=== PATIENT | male | born 1985 | race Caucasian/White ===

== ENCOUNTER 2021-10-19 10:52 | Emergency (ER) | payer MEDICAID, OTHER ==
[~2021-10-19] VITALS: Ht 177.8 cm; Wt 74.8 kg
[2021-10-19] MEDS ORDERED: BENZ-13 PO (12:39)
[2021-10-19] MEDS ORDERED: CHLO25CA22 PO (12:39)
--- NOTE | 2021-10-19 12:48 | NUR ---
PT WAS SEEN AND EVALUATED BY DR KIDD. PCR SPECIMEN OBTAINED AND SENT TO LAB. D/C WITH INSTRUCTIONS PER MD ORDER.
[2021-10-19 12:49] VITALS: BP 133/88
== END 2021-10-19 12:49 | disposition home or self-care (01) ==
LOC: ER 10:52
DX: R05.9 Cough, unspecified (principal); Z20.822 Contact with and (suspected) exposure to COVID-19; F10.20 Alcohol dependence, uncomplicated; Z86.16 Personal history of COVID-19
CPT/HCPCS: 36415; 99283; C9803; U0003; A4663